=== PATIENT | male | born 1975 | race Caucasian/White ===

== ENCOUNTER 2021-05-11 08:48 | Day surgery (SDC) | payer SELFPAY ==
[2021-05-04 13:40] VITALS: BMI 30.9
[2021-05-11] VITALS (7 sets, daily range): BP systolic 94–126; BP diastolic 48–96; PULSE 68–88; RESP 12–18; TEMP 35.7–36.6; O2SAT 94–99; BMI 29.9
[2021-05-11] MEDS: Lactated Ringers 1,000 ML 100 ML IV (09:47)
--- NOTE | 2021-05-11 10:49 | PCM.HP.BLA ---
History and Physical Date of Admission: 05/11/21 Intake Visit Reasons: C-Scope & hemorrhoids Chief Complaint: rectal pain/ hemorrhoids Manager Of Quality Required: No Is patient in pain?: No Allergies No Known Allergies Allergy (Verified 05/04/21 13:41) Medications Diltiazem 2% / Lidocaine 5% ointment (compound) #1 ea 05/04/21 [Rx Confirmed 05/04/21] ascorbic acid (vitamin C) 500 mg tablet 500 mg PO DAILY 05/04/21 [History Confirmed 05/04/21] lisinopril 10 mg tablet 10 mg PO DAILY 05/04/21 [History Confirmed 05/04/21] magnesium 250 mg tablet 250 mg PO DAILY 05/04/21 [History Confirmed 05/04/21] PFS Medical History Hemorrhoids History of appendicitis HTN (hypertension) Surgical History History of appendectomy Family History (Updated 05/04/21 @ 13:40 by Georgina Pink) Brother Diabetes Brother Diabetes Social History (Updated 05/04/21 @ 13:40 by Georgina Pink) Smoking Status: Former smoker HPI HPI HPI: ELIAZAR QUEZADA, is a 45 M who presents to the office today for surgical consultation regarding hemorrhoids and possible fissure and potential need for colonoscopy. The patient is referred by Robel Sumner PA-C and a written copy of my surgical consult and recommendations will return to him. The patient was prescribed Anusol and witch wade pads. Patient goes on to state that he has been treated by Dr. Chappell in [facility]. 12 different trips to physicians office over the past 4 to 5 months. Multiple intrarenal treatments for suspected stage II hemorrhoids. Patient was was told that he had internal hemorrhoids. Apparently patient also was told that he had a fissure on that dose to spontaneously heal. The patient complains of rectal pain. Is increased with sitting. Very rare blood. He feels a tender mass that protrudes intermittently. States is not present currently. 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 He is not currently driving himself. No personal or family history of colon cancer. He has never had a colonoscopy. ROS General General: No weight change, appetite, fatigue, colon cancer, breast cancer or weakness HEENT HEENT: No difficulty swallowing, eye injury, eye surgery, swollen glands or hoarseness Endo Endocrine: No thyroid disease, diabetes mellitus, thyroid cancer, Hair loss, heat intolerance or cold intolerance Musc Musculoskeletal: No back problems, arthritis, rheumatoid arthritis, gout or joint pain Cardio Cardiovascular: Yes high blood pressure; No murmur, pacemaker, heart disease, atrial fibrillation, heart attack, heart stent, palpitations, shortness of breat with exertion or chest pain Psych Psychiatric: No depression, anxiety or hearing voices Resp Respiratory: No shortness of breath, No sleep apnea, No cough, No COPD, No asthma, No emphysema and No wheezing Gastro Gastrointestinal: No abdominal pain, No nausea or vomiting, No diarrhea, No constipation, Yes blood in stool, No acid reflux, Yes hemorrhoids, No ulcers, No gallbladder problem and No black,tarry stools Jose Hematologic: No blood thinners, No blood disorders, No bleeding, No anemia and No blood clots Neuro Neurologic: No weakness Exam Const General: cooperative, comfortable and no acute distress Nutritional Appearance: average body habitus Orientation: alert and awake [facility] Head: normal to inspection Eyes General: appearance normal, both eyes and all related structures Chest Chest palpation & inspection: normal inspection of the chest Resp Effort & Inspection: normal respiratory effort Auscultation: clear to auscultation bilaterally Cardio Rate: regular rate Rhythm: regular rhythm GI Other: Soft, nontender, no hepatosplenomegaly. External anal exam does not demonstrate any external hemorrhoids. On inspection there is an obvious rather deep posterior anal fissure. There is some tissue protruding superior to that. No evidence of any discharge. I deferred digital exam. Neuro General: patient alert and patient awake Extrem General: no calf tenderness Psych Affect: normal affect COVID (Procedure Consent) Procedure Criteria Procedure Criteria: Yes Elective The surgeon/proceduralist and patient have discussed in detail the risk of exposure to and/or potential harm posed by the COVID-19 virus with having a surgery/procedure at this time versus the risk of delaying the surgery/procedure. It is not possible to know either the risk of delaying the surgery or procedure or chance of getting an infection with perfect accuracy, but a joint decision was made between the patient and the surgeon/proceduralist to proceed at this time with the scheduled surgery/procedure as indicated on the consent form. Assessment and Plan Assessment and Plan (1) Anal fissure: Status: Acute (2) Hemorrhoids: Status: Acute Qualifiers: Hemorrhoid type: second degree Qualified Code(s): K64.1 - Second degree hemorrhoids Plan - Dr. Eric Jean MD: The patient describes 12 different treatments for internal hemorrhoids. Some kind of ablation technique. He is still having significant anal pain. I suppose this still could be a combination of internal hemorrhoids but clearly on examination today he has a significant posterior anal fissure. When I propose for him is a combined colonoscopy with possible biopsy or polypectomy with plan examination under anesthesia. I would anticipate a posterior anal fissure rectally with resection of the protruding tissue. If a hemorrhoidectomy were needed I would combine a minimal resection but I have instructed the patient that it is much more difficult to heal the fissure when additional tissue was resected. He is aware that a lateral internal sphincterotomy would assist with resolution however that that carries a 10 to 15% chance of incontinence and that without further information and inspection I would not propose proceeding with that directly. He is aware that if my debridement of his fissure does not persist with resolution that he could require additional treatment. I recommend that he continue with his fiber supplementation. He can certainly continue with the probiotic. We will prescribe him to size 7.9 and hydrocortisone suppositories to be used twice daily. We will tentatively look at scheduling him for the colonoscopy and examination anesthesia with fissurectomy possible limited hemorrhoidectomy. He has had an opportunity to ask and have questions answered. We will schedule procedure at his discretion. It is aware that post procedure I will be prescribing a short course of metronidazole antibiotic as well as mineral oil to assist with his resolution. I appreciate the opportunity assisting with surgical care Copy:SHAINA Kaminski M.D., F.A.C.S. Plan Details Other Medications: New: Diltiazem 2% / Lidocaine 5% ointment (compound) (Diltiazem 2%/Lidocaine 5% ointment (compound)) As directed 1 ea 0RF Coding Level of Care Code 58748 Diagnoses Anal fissure K60.2 Hemorrhoids K64.1 Hemorrhoid type: second degree I have re-examined the patient. There are no clinical changes since date of exam. Eric Jean M.D., F.A.C.S.
[2021-05-11] MEDS: Cefotetan 2 GM in 0.9% NS 100 ML IV (11:00)
--- NOTE | 2021-05-11 11:00 | ANTA_PTH ---
PATIENT: ELIAZAR QUEZADA JUNIOR LOC: [facility] [place] U#:[id number] AGE/SX: 45/M ROOM: RE05/11/[address]: Dr. Eric Jean MD : 1975 BED: DIS: 05/11/2021 SPEC #: [id number] RECD: 05/11/21 15:08 STATUS: FORTUNATO REKayla #: [id number] ADINA: 05/11/21 11:[address]: Eric Jean DEPT: SURGICAL PATHOLOGY RECD BY: Flora Doyle ENTERED: 05/12/21 08:34 SP TYPE: Anal Tag OTHR DR: Robel Sumner PA-C Tissues: A - Anal region B - PAPILLOMA (except papilloma of bladder - [id number]) Procedures: Surgery Specimen Level IV HEADER OPERATION: Colonoscopy PRE-OP DIAGNOSIS: Anal fissure, hemorrhoids TISSUE SUBMITTED: A ? Posterior anal fissure, B ? Hypertrophic anterior papillae MICROSCOPIC DIAGNOSIS A. Posterior anal fissure, biopsy: Ulceration with associated acute and chronic inflammation and granulation consistent with fissure. B. Anterior anal papillae, biopsy: Polypoid fragment of squamous mucosa with vascular congestion, hyperkeratosis and mild chronic inflammation. AM:harvey 05/15/2021 MICROSCOPIC DESCRIPTION Slides are reviewed. GROSS DESCRIPTION A - Received in fixative is one container labeled with the patient's name and designated posterior anal tissue. The specimen consists of two pieces of skin with underlying tissue measuring 1 x 1 x 0.6 cm and 0.5 x 0.1 x 0.1 cm. The larger piece is bisected. The entire specimen is submitted in one cassette. B - Received in fixative is one container labeled with the patient's name and designated hypertrophic anterior papillae. The specimen consists of a polypoid piece of curran-white skin measuring 1 x 0.5 x 0.3 cm. The specimen is inked, bisected and submitted entirely in one cassette. / SJ:harvey 05/12/21 TC:2 CPT: 93093 x2
--- NOTE | 2021-05-11 11:04 | DCINST_ITS ---
Discharge Instructions Procedure Rectal Surgery Diet Discharge Diet: No restrictions Activity Discharge Activity: Return to Normal Activity and May Not Drive (while you are taking narcotic pain medications. Do not drive, work with heavy equipment or s ign legal documents for 24 hours after your surgery.) Additional Activity Instructions:: Do not drive or work with heavy equipment or sign legal documents for 24 hours. Be aware that pain medications may cause nausea. You should typically eat light foods as you take your pain medications. Pain medications may also cause constipation, if you have difficulty with this please discuss with your doctor. Follow Up Care Please Follow Up With: Eric Jean MD Test Results: Metamucil, Citrucel, FiberCon, Benefiber, tablespoon in food or juice or water daily Mineral oil 30 cc or 1 ounce in fluid or food daily for 5 days Antibiotic tablets as prescribed Sitzs baths in warm soapy water as needed for hygiene and comfort You may apply the dibucaine ointment every 2-4 hours as needed for comfort Please call [phone] for office follow-up in 3 weeks Discharge Plan Admission Primary Reason for Your Visit: Anal rectal pain and bleeding and fissure Attending Provider: Eric Jean Primary Care Provider: Robel Sumner Discharge Orders/Prescriptions Prescriptions: New metronidazole 250 mg tablet 250 mg PO TID Qty: 15 RF: 0 hydrocodone-acetaminophen 5-325 mg tablet 1 tab PO Q6H PRN (Reason: pain) 3 Days Qty: 10 RF: 0 Continued lisinopril 10 mg tablet 10 mg PO DAILY RF: 0 ascorbic acid (vitamin C) 500 mg tablet 500 mg PO DAILY RF: 0 magnesium 250 mg tablet 250 mg PO DAILY RF: 0 (DME) Diltiazem 2%/Lidocaine 5% ointment (compound) Ointment See Rx Instructions .ROUTE .MEDSUPPLY Qty: 1 RF: 0 fiber Tablet 1 tab PO DAILY RF: 0 Probiotic 20 billion cell Capsule, Sprinkle 1 cap PO DAILY RF: 0 Other Ambulatory Orders: COVID 19 AG RAPID (RN COLLECT) (Routine) Timeframe: [id number] Facility: [facility] - Location: Laboratory Ordered By: Dr. Jayson Sam Referrals / Follow Up: Robel Sumner DO [Primary Care Provider] - Disposition Disposition (needs filled in before D/C Order can be placed): Home, Self Care
[2021-05-11] MEDS: BUPIVACAINE LIPOSOME/PF 20 ML VIAL OPERA.SITE (11:40)
[2021-05-11] MEDS: Lubricating Jelly 60 GM Tube 30 GM TOPICAL (11:40)
[2021-05-11] MEDS: Bupivacaine Mpf 0.5% 30 ML VIAL (11:58)
--- NOTE | 2021-05-11 12:03 | PCM.OPRPT ---
Problems Associated Problem List Diagnoses (1) Anal fissure: (2) Hypertrophy, papillae, anal: Report of Operation Date of Procedure: 05/11/21 Pre-Operative Diagnosis: Posterior anal fissure Post-Operative Diagnosis: Posterior anal fissure, hypertrophic anterior anal papilla Surgery/Procedure Performed:: Examination under anesthesia, posterior fissurectomy, anterior papillectomy Description of Surgical Findings:: The colonoscopy was completed and dictated in provation. The patient was then placed prone on the table. Shoulder rolls placed. Patient received 2 g of cefotetan. Was placed in a prone jackknife position. Perianal area is prepped with Betadine. Inspection revealed a fairly well established posterior anal fissure. There was a hypertrophic anterior anal papilla. I placed an anal speculum. Posteriorly I placed an apical suture of 2-0 chromic. I then used a scalpel to sharply excise the skin surrounding the fissure. The granulation tissue was firmly adherent I had to use Metzenbaum scissors to sharply excised it and then I used electrocautery to help cauterize the base. I felt that I had the fissure nicely debrided. I did approximate mucosa with a running 2-0 chromic. The anterior anal papilla was excised with electrocautery and then the mucosa was approximated with a running 2-0 chromic. There was good laxity of tone. No injury to the anal sphincters. The perianal tissue was anesthetized with 20 cc of Exparel mixed with 20 cc of 0.5% Marcaine. Vaseline gauze treated with dibucaine was inserted. Sterile cover dressings. Sponge and instrument and needle counts were reported to the surgeon to be correct. Specimen anal fissure and hypertrophic papilla. Drains none. Blood loss minimal. Eric Jean M.D., F.A.C.S. Surgeon: Eric Jean Type of Anesthesia: General and Local Anesthesiologist: José Manuel Winn
--- NOTE | 2021-05-11 12:13 | OP.CCLET_ITS ---
05/11/2021 Robel Sumner Do Re : Colonoscopy procedure for Hay Yoon Dear Taisha This procedure was performed on May. My impressions and recommendations are as follows: Impressions : - Anal fissure found on perianal exam. - Anal fissure found on digital rectal exam. - Foreign body in the rectum. Removal was successful. Upon examination once extracted this appeared to be a food type appearance to a foreign body which ended up with very little texture to it and no adverse consideration - The examination was otherwise normal. Recommendations : - Discharge patient to home. - Resume previous diet. - Continue present medications. - Repeat colonoscopy in 10 years for screening purposes. My findings are described in the full procedure note, which is enclosed. If I can be of further assistance, please feel free to contact me at Doctor phone number(s): Work: . Sincerely, Eric Jean MD 05/11/2021 12:13:16 PM This report has been signed electronically.
--- NOTE | 2021-05-11 12:13 | OP.COLON_ITS ---
Patient Name: Hay Yoon Procedure Date: 05/11/2021 10:30 AM Date of : 1975 Age: 45 Procedure: Colonoscopy Indications: Rectal bleeding Providers: Eric Jean MD Referring MD: Robel Sumner Do Medicines: See the Anesthesia note for documentation of the administered medications Patient Profile: Last Colonoscopy: none. The patient's first colonoscopy is today. Complications: No immediate complications. Procedure: Pre-Anesthesia Assessment: - Prior to the procedure, a History and Physical was performed, and patient medications and allergies were reviewed. The patient's tolerance of previous anesthesia was also reviewed. The risks and benefits of the procedure and the sedation options and risks were discussed with the patient. All questions were answered, and informed consent was obtained. Prior Anticoagulants: The patient has taken no previous anticoagulant or antiplatelet agents. ASA Grade Assessment: I - A normal, healthy patient. After reviewing the risks and benefits, the patient was deemed in satisfactory condition to undergo the procedure. After I obtained informed consent, the scope was passed under direct vision. Throughout the procedure, the patient's blood pressure, pulse, and oxygen saturations were monitored continuously. The pediatric colonoscope was introduced through the anus and advanced to the cecum, identified by appendiceal orifice and ileocecal valve. The colonoscopy was performed without difficulty. The patient tolerated the procedure well. The quality of the bowel preparation was good. The ileocecal valve and the appendiceal orifice were photographed. Scope In: 11:13:11 AM Scope Withdrawal Time 0 hours 9 minutes 35 seconds Scope Out: 11:27:50 AM Total Procedure Duration Time 0 hours 14 minutes 39 seconds Findings: An anal fissure was found on perianal exam. The digital rectal exam was normal. Pertinent negatives include normal prostate (size, shape, and consistency). The digital rectal exam findings include anal fissure. A foreign body was found in the rectum. Removal of food was accomplished with a snare. The exam was otherwise without abnormality. Impression: - Anal fissure found on perianal exam. - Anal fissure found on digital rectal exam. - Foreign body in the rectum. Removal was successful. Upon examination once extracted this appeared to be a food type appearance to a foreign body which ended up with very little texture to it and no adverse consideration - The examination was otherwise normal. Recommendation: - Discharge patient to home. - Resume previous diet. - Continue present medications. - Repeat colonoscopy in 10 years for screening purposes. Procedure Code(s): --- Professional --- 34149, Colonoscopy, flexible; with removal of foreign body(s) Diagnosis Code(s): --- Professional --- K60.2, Anal fissure, unspecified T18.5XXA, Foreign body in anus and rectum, initial encounter K62.5, Hemorrhage of anus and rectum CPT copyright 2017 [employer]. All rights reserved. The codes documented in this report are preliminary and upon auditing coder review may be revised to meet current compliance requirements. Eric Jean MD 05/11/2021 12:13:16 PM This report has been signed electronically. Number of Addenda: 0 Note Initiated On: 05/11/2021 10:30 AM
[2021-05-11] MEDS: Dibucaine 30 GM Tube 1 APPLIC (12:15)
[2021-05-11] MEDS: HYDROcodone Bitartrate/Apap 5/325 Tablet PO (14:44)
== END 2021-05-11 15:00 | disposition home or self-care (01) ==
LOC: SDC 08:55 → AC 08:57
PROVIDERS: PCP Physician Assistant; Referring Provider Physician Assistant; Visit Provider Surgery
PROC: (CPT 45379; principal; 2021-05-11 10:45)
PROC: 0DJD8ZZ Inspection of Lower Intestinal Tract, Via Natural or Artificial Opening Endoscopic (ICD-10-PCS; CPT 45378; principal; 2021-05-11 10:55)
DX: K60.2 Anal fissure, unspecified (principal); K62.89 Other specified diseases of anus and rectum; K64.1 Second degree hemorrhoids; K62.5 Hemorrhage of anus and rectum; T18.5XXA Foreign body in anus and rectum, initial encounter; I10 Essential (primary) hypertension; Z87.891 Personal history of nicotine dependence
CPT/HCPCS: 00902; 45379; 46200; 87426; 88304; 88305; J7120; J2405